=== PATIENT | male | born 1955 | race Caucasian/White ===

== ENCOUNTER 2022-04-02 16:58 | Emergency (ER) | payer BC, MEDICARE ==
[2022-04-02 18:11] LABS: HEMOGLOBIN 12.3 gm/dl (14.0-17.5); RED BLOOD COUNT 4.12 M/UL (4.20-5.50); WHITE BLOOD COUNT 6.2 K/UL (4.5-11.0)
[2022-04-02 18:49] LABS: BUN/CREATININE RATIO 19 (0-10)
[2022-04-02] MEDS ORDERED: CEPHALEXIN500 M1 PO (23:47)
[2022-04-02] MEDS ORDERED: BACITRAYCIN PLU28 GM TP (23:49)
== END 2022-04-03 00:15 | disposition home or self-care (01) ==
LOC: ER1 16:58
PROVIDERS: Physician Assistant
DX: T24.202A Burn of second degree of unspecified site of left lower limb, except ankle and foot, initial encounter (principal); I11.9 Hypertensive heart disease without heart failure; E11.9 Type 2 diabetes mellitus without complications; E78.5 Hyperlipidemia, unspecified; Z95.1 Presence of aortocoronary bypass graft; Z79.82 Long term (current) use of aspirin; X08.8XXA Exposure to other specified smoke, fire and flames, initial encounter
CPT/HCPCS: 80053; 85025; 87040; 87070; 87077; 87186; 87205; 99283